=== PATIENT | male | born 1975 | race Asian ===

== ENCOUNTER 2022-01-18 13:03 | Outpatient (CLI) | payer BC ==
[2022-01-19 00:16] LABS: SARS-CoV-2 PCR by NAA Not Detected (NotDetected)
== END 2022-01-18 13:04 | disposition home or self-care (01) ==
LOC: CSHLAB 13:03
PROVIDERS: ATTEND Internal Medicine Gastroenterology
DX: Z20.822 Contact with and (suspected) exposure to COVID-19 (principal); Z12.11 Encounter for screening for malignant neoplasm of colon
CPT/HCPCS: U0003; U0005

== ENCOUNTER 2022-01-23 08:00 | Day surgery (SDC) | payer BC ==
[2022-01-20 13:14] VITALS: BMI 28.8
[2022-01-23] MEDS ORDERED: Lidocaine 1% MPF 2 ML VIAL ONE (09:15)
[2022-01-23] MEDS ORDERED: PROPOFOL 40 ML ONE (10:17)
== END 2022-01-23 11:15 | disposition home or self-care (01) ==
LOC: CSHSDC 08:00
PROVIDERS: ATTEND Internal Medicine Gastroenterology
PROC: 0DJD8ZZ Inspection of Lower Intestinal Tract, Via Natural or Artificial Opening Endoscopic (ICD-10-PCS; principal; 2022-01-23)
DX: K57.31 Diverticulosis of large intestine without perforation or abscess with bleeding (principal); K64.9 Unspecified hemorrhoids; Z88.0 Allergy status to penicillin; Z80.0 Family history of malignant neoplasm of digestive organs
CPT/HCPCS: J2704